=== PATIENT | female | born 1995 | race Hispanic/Latino ===

== ENCOUNTER 2017-04-08 20:04 | Emergency (ER) | payer MEDICAID ==
--- NOTE | 2017-04-08 21:23 | C.PDOC ---
History Of Present Illness 04/08/2017 Cindy Hernandez is a 21 y/o female, who presents to the ED complaining of cough and congestion that radiates to the back. Patient reports taking Promethazine with some minimal relief but ran out of medication. Patient denies chest pain, headache, shortness of breath, abdominal pain or other complaints. Time Seen by Provider: 04/08/17 20:29 Chief Complaint (Nursing): Cough, Cold, Congestion History Per: Patient History/Exam Limitations: no limitations Current Symptoms Are (Timing): Still Present Associated Symptoms: Cough, Nasal Congestion. denies: Vomiting, Diarrhea Past Medical History Reviewed: Historical Data, Nursing Documentation, Vital Signs Vital Signs: Last Vital Signs Temp 98.7 F 04/08/17 21:37 Pulse 82 04/08/17 21:37 Resp 18 04/08/17 21:37 BP 128/78 04/08/17 21:37 Pulse Ox 100 04/08/17 21:43 - Medical History PMH: Hypothyroidism Family History: States: Unknown Family Hx - Social History Hx Alcohol Use: No Hx Substance Use: No - Immunization History Hx Tetanus Toxoid Vaccination: No Hx Influenza Vaccination: No Hx Pneumococcal Vaccination: No Review Of Systems Constitutional: Negative for: Fever ENT: Positive for: Nose Congestion Cardiovascular: Negative for: Chest Pain Respiratory: Positive for: Cough. Negative for: Shortness of Breath Gastrointestinal: Negative for: Abdominal Pain Musculoskeletal: Positive for: Back Pain Physical Exam - Physical Exam Appears: Well, Non-toxic, No Acute Distress Skin: Normal Color, Warm, Dry Head: Atraumatic, Normacephalic Eye(s): bilateral: Normal Inspection, PERRL Neck: Normal Cardiovascular: Rhythm Regular Respiratory: Normal Breath Sounds, No Rales, No Rhonchi, No Stridor, No Wheezing Extremity: Normal ROM Neurological/Psych: Oriented x3, Normal Speech, Normal Motor, Normal Sensation, Normal Reflexes Gait: Steady ED Course And Treatment O2 Sat by Pulse Oximetry: 100 (room air) Pulse Ox Interpretation: Normal Disposition Counseled Patient/Family Regarding: Diagnosis, Need For Followup, Rx Given - Disposition Referrals: Shaik An MD [Staff Provider] - Disposition: HOME/ ROUTINE Disposition Time: 21:20 Condition: STABLE Additional Instructions: Take meds as directed Follow up with PMD Return to ER if worse Prescriptions: Cetirizine HCl [Zyrtec] 10 mg PO DAILY #20 capsule Ibuprofen [Motrin] 600 mg PO Q6H #30 tab Promethazine DM [Phenergan DM Syrup] 10 ml PO QID #100 ml Instructions: Upper Respiratory Infection (ED) Forms: [facility] ([place]), Work Excuse - Clinical Impression Clinical Impression: Upper respiratory infection - Scribe Statement The provider has reviewed the documentation as recorded by the Scribe 04/08/2017 Scribe Attestation: Neli Jimenez MD Scribe Attestation: All medical record entries made by the Scribe were at my direction and personally dictated by me. I have reviewed the chart and agree that the record accurately reflects my personal performance of the history, physical exam, medical decision making, and the department course for this patient. I have also personally directed, reviewed, and agree with the discharge instructions and disposition.
[2017-04-08 21:37] VITALS: BP 128/78; PULSE 82; RESP 18; TEMP 98.7
[2017-04-08 21:40] VITALS: O2SAT 100
--- NOTE | 2017-04-09 12:47 | CARD ---
APPROVED REPORT EKG Measurement Heart [id number] <Conclusion> Normal sinus rhythm Normal ECG
== END 2017-04-08 21:37 | disposition home or self-care (01) ==
LOC: C.ER 20:04
DX: J06.9 Acute upper respiratory infection, unspecified (principal)